=== PATIENT | female | born 1960 | race Caucasian/White ===

== ENCOUNTER 2016-09-10 10:33 | Emergency (ER) | payer OTHER ==
[2016-09-10] MEDS ORDERED: NS 1,000 ML IV ONE (11:05)
--- NOTE | 2016-09-10 11:15 | EDPHY ---
HPI/HX/ROS/PE/MDM Narrative: CHIEF COMPLAINT: Multiple complaints HPI: The patient is a 55 y/o female arriving with her complaining of multiple issues over the last month and acute neck and jaw pain this morning. She complains of constipation for the last month, indigestion for the last few weeks, and dyspnea with rapid heart rate while walking for the past week. A few days ago she noticed moderate left jaw pain followed by some nasal congestion and cold hands. She has a history of hypothyroidism, but has been asymptomatic and off medication for it for several years. She made an appointment with her PCP for this week to discuss these symptoms, but this morning while at work she developed sharp left-sided neck and back pain with indigestion and "felt like something was wrong." She attempted to go to urgent care but was referred to the ED. She denies chest pain, fever, vomiting, abdominal pain. No cardiac history. REVIEW OF SYSTEMS: Aside from elements discussed in the HPI, a comprehensive 10-point review of systems was reviewed and is negative. PMH: Hypothyroidism, previous episode of hypokalemia SOCIAL HISTORY: Works for [employer], at bedside, vegetarian PHYSICAL EXAM: General:Patient is alert, in no acute distress. ENT:Eyes are normal to inspection. ENT inspection normal. Neck: Normal inspection. Full range of motion. Respiratory:No respiratory distress. Breath sounds normal bilaterally. Cardiovascular: Regular rate and rhythm. Strong peripheral pulses. Normal cap refill. Abdomen:The abdomen is nontender to palpation. There are no peritoneal signs. There are normal bowel sounds. Back: Normal to inspection. No tenderness to palpation. Skin: Normal color. No rash. Warm and dry. Extremities: Normal appearance. Full range of motion. Neuro: Oriented x3. Normal motor function. Normal sensory function. ED Course: IV established. Labs drawn including CBC, CHEM, TSH, troponin. 1L IV NS administered. EKG and chest x-ray ordered. The 12 lead EKG was interpreted by myself. See hard copy and/or "tracemaster" electronic copy for interpretation. Patient has requested her fluids be discontinued and her IV removed. Study: Chest x-ray Indication: Pain Results: Chest x-ray was obtained. The results of the study are normal chest. The study was read by the radiologist, Dr. Navarro. I viewed the images myself on the PACS system. 1235: Reassessed patient and discussed work up. Her labs, EKG, and chest x-ray are completely normal. I offered admission for further evaluation of her ongoing symptoms, which she declined. She will be discharged home with strict return precautions and recommendation to follow up with her PCP early this week. She agrees with this. MDM: This patient presents with a little extensive list of complaints that have been present for least a month. 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 Some of her symptoms are somewhat vague, but her complain of jaw pain and shortness of breath raises concern for cardiac etiology with atypical symptoms. As such, we performed a chest x-ray, EKG and troponin which are thankfully negative. These findings are reassuring given several days of symptomatology. I explained to her that there is no sign of heart attack at this point, and given no EKG changes or complaint of chest pain, I do not think the patient requires emergent cardiac catheterization. I offered her admission to the hospital for risk stratification and further monitoring, but she refuses this and would like to go home. She understands we cannot rule out heart disease fully here in the emergency department. We discussed strict return precautions and the patient promises to return for any worsening of condition. Her TSH is normal, making active thyroid disease unlikely. - Data Points Laboratory Results: Laboratory Results 09/10/16 11:00 09/10/16 11:00 09/10/16 11:00 WBC 5.59 10^3/uL (3.80-9.50) RBC 5.07 10^6/uL (4.18-5.33) Hgb 15.4 g/dL (12.6-16.3) Hct 43.9 % (38.0-47.0) MCV 86.6 fL (81.5-99.8) MCH 30.4 pg (27.9-34.1) MCHC 35.1 g/dL (32.4-36.7) RDW 12.0 % (11.5-15.2) Plt Count 240 10^3/uL (150-400) MPV 10.5 fL (8.7-11.7) Neut % (Auto) 64.4 % (39.3-74.2) Lymph % (Auto) 28.1 % (15.0-45.0) [place] % (Auto) 6.1 % (4.5-13.0) Eos % (Auto) 0.7 % (0.6-7.6) Baso % (Auto) 0.5 % (0.3-1.7) Nucleat RBC Rel Count 0.0 % (0.0-0.2) Absolute Neuts (auto) 3.60 10^3/uL (1.70-6.50) Absolute Lymphs (auto) 1.57 10^3/uL (1.00-3.00) Absolute Monos (auto) 0.34 10^3/uL (0.30-0.80) Absolute Eos (auto) 0.04 10^3/uL (0.03-0.40) Absolute Basos (auto) 0.03 10^3/uL (0.02-0.10) Absolute Nucleated RBC 0.00 10^3/uL (0-0.01) Immature Gran % 0.2 % (0.0-1.1) Immature Gran # 0.01 10^3/uL (0.00-0.10) Sodium 143 mEq/L (134-144) Potassium 3.9 mEq/L (3.5-5.2) Chloride 105 mEq/L (97-110) Carbon Dioxide 26 mEq/l (22-31) Anion Gap 12 mEq/L (8-16) BUN 13 mg/dL (7-23) Creatinine 0.7 mg/dL (0.6-1.0) Estimated GFR > 60 Glucose 117 H mg/dL (70-100) Calcium 9.4 mg/dL (8.5-10.4) Troponin I < 0.012 ng/mL (0-0.034) TSH 3.660 uIU/mL (0.465-4.680) Medications Given: Discontinued Medications Sodium Chloride (Ns) 1,000 mls @ 0 mls/hr IV ONCE ONE PRN Reason: Wide Open Stop: 09/10/16 11:06 Last Admin: 09/10/16 11:09 Dose: 1,000 mls General Initial Vital Signs: Initial Vital Signs Temperature (C) 36.5 C 09/10/16 10:39 Heart Rate 74 09/10/16 10:39 Respiratory Rate 18 09/10/16 10:39 Blood Pressure 144/77 H 09/10/16 10:39 O2 Sat (%) 99 09/10/16 10:39 O2 Delivery Mode Room Air Allergies/Adverse Reactions: tetracycline [Tetracycline] Allergy (Unknown, Verified 09/10/16 10:38) Home Medications: Medication Instructions Recorded Vit D3 & K/Berberine HCl/Hops 09/10/16 Departure - Departure Disposition: Home, Routine, Self-Care Clinical Impression: Jaw pain, Shortness of breath, Constipation Condition: Good Instructions: Dyspnea (ED), Constipation (ED) Additional Instructions: Follow up with your primary care provider in 2-3 days. Return to the ED for chest pain, shortness of breath, or other worsening of condition. Referrals: Pollo Cooley MD [Primary Care Provider] - As per Instructions Report Scribed for: Wali Carcamo Report Scribed by: Yasmine Soto Date of Report: 09/10/16 Time of Report: 11:15 Physician Review and Approval Statement: Portions of this note were transcribed by an ED scribe. I personally performed the history, physical exam, and medical decision making; and confirm the accuracy of the information in the transcribed note.
--- NOTE | 2016-09-10 11:20 | CPEKG ---
Heart Rate: 64 RR Interval: 938 P-R Interval: 176 QRSD Interval: 84 QT Interval: 412 QTC Interval: 425 P [place]: 39 QRS [place]: 3 T Wave [place]: 38 EKG Severity - NORMAL ECG - EKG Impression: SINUS RHYTHM Electronically Signed By: Wali Carcamo 10-Sep-2016 15:43:24
[2016-09-10 11:28] LABS: % IMMATURE GRANULYOCYTES 0.2 % (0.0-1.1); ABSOLUTE IMMATURE GRANULOCYTES 0.01 10^3/uL (0.00-0.10); ADD DIFF? NO; ADD MORPH? NO; ADD SCAN? NO; ATYPICAL LYMPHOCYTE FLAG 0 (0-99); FRAGMENT RBC FLAG 0 (0-99); HEMATOCRIT 43.9 % (38.0-47.0); HEMOGLOBIN 15.4 g/dL (12.6-16.3); LEFT SHIFT FLG 0 (0-99); LIPEMIA HEMOLYSIS FLAG 90 (0-99); MEAN CELL HEMOGLOBIN 30.4 pg (27.9-34.1); MEAN CELL HEMOGLOBIN CONCENTR. 35.1 g/dL (32.4-36.7); MEAN CELL VOLUME 86.6 fL (81.5-99.8); MEAN PLATELET VOLUME 10.5 fL (8.7-11.7); PLATELET CLUMPS FLAG 0 (0-99); PLATELET COUNT 240 10^3/uL (150-400); RED BLOOD CELL COUNT 5.07 10^6/uL (4.18-5.33)
[2016-09-10 11:43] LABS: ANION GAP 12 mEq/L (8-16); CALCIUM 9.4 mg/dL (8.5-10.4); CARBON DIOXIDE 26 mEq/l (22-31); CHLORIDE 105 mEq/L (97-110); CREATININE 0.7 mg/dL (0.6-1.0); GLOMERULAR FILTRATION RATE > 60; GLUCOSE 117 mg/dL (70-100); POTASSIUM 3.9 mEq/L (3.5-5.2); SODIUM 143 mEq/L (134-144)
[2016-09-10 11:54] VITALS: PULSE 72; RESP 16
[2016-09-10 11:55] LABS: TROPONIN I < 0.012 ng/mL (0-0.034)
--- NOTE | 2016-09-10 12:03 | DX ---
PA and lateral chest. September 10, 2016. Clinical History: Tachycardia Comparison Study: August 18, 2007. Findings: The lungs are clear. No pleural disease identified. Heart size is normal. Visualized osseous structures appear normal. Impression: Normal chest.
[2016-09-10 12:59] VITALS: BP 138/72; TEMP 96.8; O2SAT 95
== END 2016-09-10 12:59 | disposition home or self-care (01) ==
DX: R68.84 Jaw pain (principal); R06.02 Shortness of breath; K59.00 Constipation, unspecified

== ENCOUNTER → 2016-09-13 | Outpatient (CLI) | payer OTHER ==
--- NOTE | 2016-09-13 15:51 | MA ---
Screening Digital Mammogram With Tomosynthesis Clinical Indications: Routine screening. Grandmother with breast cancer. Technique: Standard digital cephalocaudal and tomosynthesis mediolateral oblique projections are obt ained. The digital images are processed by the [employer] computer aided detection system. Comparison: January 2015, November 2013, July 2012 and April 2011 Breast density: C; The breast tissue is heterogeneously dense, which could obscure detection of small masses. Findings: CAD was reviewed. No suspicious findings are identified. Impression: Negative mammogram. BI-RADS 1. Recommendation: Routine screening is recommended in one year, as long as physical examination is remi ign in this patient with moderately dense breast parenchyma. [facility] will send a result letter to the patient. Negative mammography should not preclude additional workup of a clinically suspicious finding. The patient's information is entered into a reminder system with a target due date for her next mammo gram.
== END ==
LOC: FIMAGING 14:51
DX: Z12.31 Encounter for screening mammogram for malignant neoplasm of breast (principal); Z80.3 Family history of malignant neoplasm of breast
CPT/HCPCS: G0202

== ENCOUNTER → 2017-10-02 | Outpatient (CLI) | payer OTHER | LOC: FIMAGING 08:51 | PROVIDERS: ATTEND Obstetrics & Gynecology | DX: Z12.31 Encounter for screening mammogram for malignant neoplasm of breast (principal); Z80.3 Family history of malignant neoplasm of breast ==

== ENCOUNTER → 2018-09-04 | Outpatient (CLI) | payer OTHER | LOC: FIMAGING 12:27 | PROVIDERS: ATTEND Internal Medicine | DX: E04.1 Nontoxic single thyroid nodule (principal) ==